=== PATIENT | female | born 1985 | race Caucasian/White ===

== ENCOUNTER 2022-01-16 12:59 | Outpatient (RCR) | payer OTHER, SELFPAY | END 2022-05-08 13:37 | disposition home or self-care (01) | PROVIDERS: PCP Family Medicine; Visit Provider Orthopaedic Surgery Sports Medicine | DX: M25.511 Pain in right shoulder (principal); M25.611 Stiffness of right shoulder, not elsewhere classified; M62.511 Muscle wasting and atrophy, not elsewhere classified, right shoulder; Z51.89 Encounter for other specified aftercare | CPT/HCPCS: 97112; 97140 ==

== ENCOUNTER 2023-05-01 14:29 | Emergency (ER) | payer OTHER, SELFPAY ==
[2023-05-01 14:36] VITALS: BP 148/100; PULSE 100; RESP 22; TEMP 36.2; O2SAT 104; BMI 39.0
--- NOTE | 2023-05-01 15:15 | ED.GENADULT ---
HPI - General Adult General Chief complaint: Dental/Oral/Mouth Injury/Pain Stated complaint: L face pain Time Seen by Provider: 05/01/23 15:06 History of Present Illness HPI narrative: Patient is a 38-year-old woman who unfortunately has developed pain in the left maxillary region. This seems to radiate to the left ear and down into the jaw. Patient has been treated for possible trigeminal neuralgia did have CT scan recently showing some maxillary thickening on the left. Patient states the pain terrible. She has mild rhinitis as well no cough no shortness of breath no nausea no vomiting. Patient does have a neurology follow-up tomorrow but her pain is too severe to make it until that time. Does appear that her symptoms have evolved from [place] pain on the left side of her face consistent with trigeminal neuralgia to constant boring pain more consistent with sinusitis. Related Data Home Medications Medication Instructions Recorded Confirmed lorazepam 0.5 mg tablet 0.5 mg PO Q12H PRN 04/09/23 05/01/23 loratadine 10 mg tablet (Claritin) 10 mg PO DAILY 04/22/23 05/01/23 acetaminophen 300 mg-codeine 30 mg 1 - 2 tab PO Q4-6H PRN 05/01/23 05/01/23 tablet gabapentin 300 mg capsule 300 mg PO BID PRN 05/01/23 05/01/23 Previous Rx's Medication Instructions Recorded amoxicillin 875 mg-potassium 1 tab PO Q12H Sinusitis #20 tabs 05/01/23 clavulanate 125 mg tablet hydrocodone 5 mg-acetaminophen 325 1 tab PO Q8H PRN pain #14 tabs 05/01/23 mg tablet prednisone 20 mg tablet 20 mg PO BID #10 tabs 05/01/23 Allergies Allergy/AdvReac Type Severity Reaction Status Date / Time vancomycin Allergy Intermediate red man Verified 05/01/23 14:45 syndrome Review of Systems Status of ROS: Reports: 10 or more systems reviewed and unremarkable except as noted in History and below [facility] Medical History Cervical intraepithelial glandular neoplasia, 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 EYES: No scleral icterus. ENT: Left tympanic membrane shows dullness and erythema. Left maxillary sinus the shows severe tenderness to palpation. THYROID: no thyroid nodules or thyromegaly. LYMPH: No supraclavicular or cervical lymphadenopathy. SKIN: Visible skin seen during exam normal or with benign process only. EXT: No dependent lower extremity pedal edema. HEART: Regular rate and rhythm with no murmurs, rubs, or gallops. LUNGS: Clear to auscultation bilaterally with no crackles or wheezes. ABD: Soft, non tender, non distended. PSYCH: Good eye contact, speech is not pressured. Const: Vital Signs, click to edit/add: Vital Signs - 24 hr 05/01/23 14:36 Temperature 97.2 F L Pulse Rate [Right Pulse Oximeter] 100 Respiratory Rate 22 Blood Pressure [Ri ght Upper Arm] 148/100 H Pulse Oximetry 104 H Oxygen Delivery Me thod Room Air Course Course ED Course: Patient seen and examined. Vital Signs Vital signs: Initial Vital Signs Temperature 97.2 F L 05/01/23 14:36 Temperature Source Temporal Artery Scan 05/01/23 14:36 Pulse Rate 100 05/01/23 14:36 Respiratory Rate 22 05/01/23 14:36 Blood Pressure 148/100 H 05/01/23 14:36 Blood Pressure Mean 116 H 05/01/23 14:36 Blood Pressure Position Sitting 05/01/23 14:36 Pulse Oximetry 104 H 05/01/23 14:36 Oxygen Delivery Method Room Air 05/01/23 14:36 Vital Signs Temperature 97.2 F L 05/01/23 14:36 Pulse Rate 100 05/01/23 14:36 Respiratory Rate 22 05/01/23 14:36 Blood Pressure 148/100 H 05/01/23 14:36 Pulse Oximetry 104 H 05/01/23 14:36 Oxygen Delivery Method Room Air 05/01/23 14:36 Temperature 97.2 F L 05/01/23 14:36 Pulse Rate 100 05/01/23 14:36 Respiratory Rate 22 05/01/23 14:36 Blood Pressure 148/100 H 05/01/23 14:36 Pulse Oximetry 104 H 05/01/23 14:36 Oxygen Delivery Method Room Air 05/01/23 14:36 Medical Decision Making MDM Narrative Medical decision making narrative: Patient presents with 2 separate issues 1 being a chronic pain in the left side of her face the 2nd being what appears to be acute sinusitis with a questionable otitis media on the left. Patient's symptoms are severe and as result did place her on Augmentin plus short course of prednisone plus Vicodin to help with the pain in the short term. She will follow-up with her primary physician as well as her neurologist. Otherwise will continue symptomatic care. Differential Diagnosis Differential Diagnosis: Sinusitis tic [place] nasal fracture viral syndrome otitis media serous Discharge Plan Discharge Clinical Impression: Sinusitis Patient Disposition: Home, Self-Care Condition: Stable Instructions: Sinusitis (ED) Additional Instructions: Augmentin prednisone and Vicodin as described Chief outpatient follow-up Report any changes in symptoms. Activity Level: No Restrictions Discharge Diet: Regular Prescriptions: New amoxicillin-pot clavulanate 875-125 mg tablet 1 tab PO Q12H Qty: 20 0RF prednisone 20 mg tablet 20 mg PO BID Qty: 10 0RF hydrocodone-acetaminophen 5-325 mg tablet 1 tab PO Q8H PRN (Reason: pain) Qty: 14 0RF No Action lorazepam 0.5 mg tablet 0.5 mg PO Q12H PRN Patient Comments: 1-2 tabs loratadine [Claritin] 10 mg tablet 10 mg PO DAILY acetaminophen-codeine 300-30 mg tablet 1 - 2 tab PO Q4-6H PRN Hold Instructions: done gabapentin 300 mg capsule 300 mg PO BID PRN Follow Up/Referrals: Julieta Issa DO [Primary Care Provider] - Stand Alone Forms: [employer] Info Instructions
== END 2023-05-01 15:35 | disposition home or self-care (01) ==
PROVIDERS: Emergency Provider Internal Medicine; PCP Family Medicine
DX: J32.9 Chronic sinusitis, unspecified (principal)
CPT/HCPCS: 99283

== ENCOUNTER 2023-06-23 19:33 | Outpatient (CLI) | payer OTHER, SELFPAY ==
--- NOTE | 2023-07-15 08:55 | W.PM.SLEEP ---
Sleep Study Details Details Interpreting Provider: Rivera Date of Sleep Study: 06/23/23 Sleep Study Details: STUDY TYPE:? Home unattended ? BMI:? Not recorded ORDERING PROVIDER:Bouchra Stafford INDICATION:? Concerns about sleep apnea ? SLEEP SUMMARY:? 555 minutes monitored RESPIRATORY SUMMARY:? AHI 7.5, supine 9.7, left lateral 5.9, right lateral 7.8 Low oxygen 81 0.2% of study oxygen below 90% Snoring 6.6% PERIODIC LIMB MOVEMENTS OF SLEEP:? Not recorded during home study CARDIAC:? 50-158, mean 65.6 IMPRESSION:? Tachycardia was noted during the study further cardiac evaluation may be indicated Overall the study demonstrates mild obstructive sleep. Treatment options would include CPAP dental appliance weight loss and/or airway expansion surgery. RECOMMENDATION: See impression
== END 2023-06-23 19:34 | disposition home or self-care (01) ==
LOC: SLEEP 19:34
PROVIDERS: PCP Family Medicine; Visit Provider Otolaryngology
DX: G47.33 Obstructive sleep apnea (adult) (pediatric) (principal)
CPT/HCPCS: 95806